=== PATIENT | male | born 1965 | race Caucasian/White ===

== ENCOUNTER 2018-05-30 17:23 | Emergency (ER) | payer BC ==
[2018-05-30] MEDS ORDERED: CLONIDINE 0.1 MG TAB PO ONE (18:01)
[2018-05-30 18:12] LABS: BASOPHILS % (AUTO) 2 % (0-3); EOSINOPHILS % (AUTO) 6 % (0-9); HEMATOCRIT 45 % (39-53); HEMOGLOBIN 15.8 gm/dl (13.5-17.7); LYMPHOCYTES % (AUTO) 31.79 % (10-50); MEAN CORPUSCULAR HEMOGLOBIN 31.7 pg (27.0-32.0); MEAN CORPUSCULAR HGB CONC 35.1 gm/dl (32.0-36.0); MEAN CORPUSCULAR VOLUME 90 fL (80-100); MONOCYTES % (AUTO) 8.2 % (0-12); NEUTROPHILS % (AUTO) 52.3 % (37-80)
[2018-05-30 18:32] LABS: ALBUMIN 3.8 gm/dl (3.4-5.0); ALKALINE PHOSPHATASE 81 IU/L (46-116); ALT 33 IU/L (14-63); AST 16 IU/L (15-37); BILIRUBIN,TOTAL 0.6 mg/dl (0.2-1.0); BLOOD UREA NITROGEN 9 mg/dl (7-18); CALCIUM 8.6 mg/dl (8.5-10.1); CHLORIDE 101 mMol/L (98-107); CREATININE 0.68 mg/dl (0.80-1.30); GLOM FILT RATE 123 mL/min (>60); GLUCOSE 266 mg/dl (74-106); POTASSIUM 3.6 mMol/L (3.5-5.1); SODIUM 139 mMol/L (136-145); TOTAL PROTEIN 6.8 gm/dl (6.4-8.2); TROP I < 0.017 ng/ml (0.000-0.056)
[2018-05-30] MEDS ORDERED: CLONIDINE 0.1 MG TAB ONE (19:07)
[2018-05-30] MEDS ORDERED: METOPROLOL TARTRATE 50 MG TAB PO ONE (19:16)
[2018-05-30] MEDS ORDERED: LISINOPRIL 20 MG TAB PO ONE (19:16)
[2018-05-30] MEDS ORDERED: METOPROLOL TARTRATE 25 MG TAB ONE (19:17)
[2018-05-30] MEDS ORDERED: LISINOPRIL 20 MG TAB ONE (19:19)
[2018-05-30] MEDS ORDERED: LABETALOL HYDROCHLORIDE 5 MG/ML SOL IV ONE (20:31)
[2018-05-30 21:07] VITALS: BP 177/119; PULSE 71; RESP 13; TEMP 97.4; O2SAT 95
== END 2018-05-30 20:38 | disposition home or self-care (01) ==
LOC: ED 17:23
DX: R29.898 Other symptoms and signs involving the musculoskeletal system (principal); I10 Essential (primary) hypertension; E11.9 Type 2 diabetes mellitus without complications; Z86.73 Personal history of transient ischemic attack (TIA), and cerebral infarction without residual deficits
CPT/HCPCS: 36415; 70450; 80053; 84484; 85025; 93005; 99284; 99285; A9270-GY